=== PATIENT | female | born 1980 | race Asian ===

== ENCOUNTER 2017-11-03 00:18 | Emergency (ER) | payer OTHER ==
[2017-11-03 00:28] VITALS: BP 157/92
--- NOTE | 2017-11-03 00:57 | ED Physician Documentation ---
PD HPI SKIN - Stated complaint Stated Complaint: RASH RT KNEE - Chief complaint Chief Complaint: Wound - History obtained from History obtained from: Patient - History of Present Illness Timing - onset: Enter time (22:30), Today Timing - details: Abrupt onset Pain level now: 1 Location: RLE Quality / character: Burning, Discolored, Raised Recently seen: Not recently seen - Additional information Additional information: diagnosed with shingles RLE approximately 5 months ago, was not prescribed medication because it was several days after rash developed. The rash eventually resolved, but tonight she noticed recurrence of lesions in the same site (but clearly new lesions, as the previous had resolved). Review of Systems Constitutional: denies: Fever Skin: reports: Rash PD PAST MEDICAL HISTORY - Past Medical History Past Medical History: No Derm: Herpes zoster - Past Surgical History Past Surgical History: No - Present Medications Home Medications: Ambulatory Orders Medication Instructions Recorded Confirmed Valacyclovir HCl [Valacyclovir] 1,000 mg PO TID #20 tablet 11/03/17 - Allergies Allergies/Adverse Reactions: Allergies Allergy/AdvReac Type Severity Reaction Status Date / Time No Known Drug Allergies Allergy Verified 11/03/17 00:28 - Social History Does the pt smoke?: No Smoking Status: Never smoker Does the pt drink ETOH?: No Does the pt have substance abuse?: No - Immunizations Immunizations are current?: Yes - POLST Patient has POLST: No PD ED PE NORMAL - Vitals Vital signs reviewed: Yes - General General: Alert and oriented X 3, No acute distress, Well developed/nourished - Extremities Extremities: No edema PD ED PE EXPANDED - Extremities Extremities: Other (exanthem is on posterior surface of right knee; there are two clusters of erythematous vesicles) Results - Vitals Vitals: Vital Signs - 24 hr 11/03/17 00:23 Temperature 36.4 C L Heart Rate 75 Respiratory 18 Rate Blood Pressure 157/92 H O2 Saturation 97 Oxygen O2 Source Room air PD MEDICAL DECISION MAKING - ED course Complexity details: considered differential, d/w patient ED course: rash is very s/o shingles (zoster), just started tonight and thus will rx valacyclovir - Sepsis Event Vital Signs: Vital Signs - 24 hr 11/03/17 00:23 Temperature 36.4 C L Heart Rate 75 Respiratory 18 Rate Blood Pressure 157/92 H O2 Saturation 97 Oxygen O2 Source Room air Departure - Departure Disposition: Home, Self Care Clinical Impression: Shingles Condition: Good Instructions: ED Shingles Prescriptions: Valacyclovir HCl [Valacyclovir] 1,000 mg PO TID #20 tablet Discharge Date/Time: 11/03/17 01:20
[2017-11-03] MEDS ORDERED: valACYclovir 500 MG TABLET PO STA (01:06)
== END 2017-11-03 01:20 | disposition home or self-care (01) ==
LOC: ED 00:18
DX: B02.9 Zoster without complications (principal)
CPT/HCPCS: 99283; A9270

== ENCOUNTER 2020-10-17 14:39 | Outpatient (CLI) | payer OTHER ==
--- NOTE | 2020-10-18 13:49 | Mammography Report ---
BILATERAL DIGITAL SCREENING MAMMOGRAM 3D/2D: 10/17/2020 CLINICAL: Baseline exam. Routine screening. No prior exams were available for comparison. The tissue of both breasts is heterogeneously dense. T his may lower the sensitivity of mammography. There is an oval low density mass with an indistinct and circumscribed margin in the right breast at 11 o'clock anterior depth. There also is an oval low density focal asymmetry with an indistinct and circumscribed margin in the right breast at 10 o'clock middle depth. Additionally, there is a cluster of oval low density asymmetries with an indistinct and circumscribed margin in the right breast at 11 o'clock posterior depth. In addition, there is an oval equal density mass with an indistinct and circumscribed margin in the r ight breast at 2 o'clock anterior depth. There is an oval low density focal asymmetry with an indistinct and circumscribed margin in the left breast at 5 o'clock posterior depth. No other significant masses or calcifications are seen in either breast. IMPRESSION: INCOMPLETE: NEEDS ADDITIONAL IMAGING EVALUATION The oval low density mass in the right breast at 11 o'clock anterior depth resembles a cyst and is in determinate. An ultrasound is recommended. The oval low density focal asymmetry in the right breast at 10 o'clock middle depth resembles a cyst and is indeterminate. An ultrasound is recommended. The cluster of oval low density asymmetries in the right breast at 11 o'clock posterior depth resembl es clustered cysts and is indeterminate. An ultrasound is recommended. The oval equal density mass in the right breast at 2 o'clock anterior depth is indeterminate. An ult rasound is recommended. The oval low density focal asymmetry in the left breast at 5 o'clock posterior depth is indeterminate . An ultrasound is recommended. This exam was interpreted at Station ID: [id number]. NOTE: For mammograms, a report in lay terms will be sent to the patient. Approximately 15% of breast malignancies will not be visualized mammographically. In the management of a palpable breast mass, a negative mammogram must not discourage biopsy of a clinically suspicious lesion. Electronically Signed By: Kenn Kim M.D. ddp/:10/17/2020 16:34:08 ACR BI-RADS Category 0: Incomplete 3340F PARENCHYMAL PATTERN: (D) - The breast(s) demonstrate(s) heterogeneously dense fibroglandular brenden shahid. BI-RADS CATEGORY: (0) - 0 Ultrasound [id number] Immediate follow-up LATERALITY: (B)
== END 2020-10-17 14:40 | disposition home or self-care (01) ==
LOC: DI 14:39
DX: Z12.31 Encounter for screening mammogram for malignant neoplasm of breast (principal); R92.8 Other abnormal and inconclusive findings on diagnostic imaging of breast

== ENCOUNTER 2020-10-31 14:19 | Outpatient (CLI) | payer OTHER ==
--- NOTE | 2020-11-01 14:21 | Ultrasound Report ---
LIMITED ULTRASOUND OF RIGHT BREAST AND AXILLA: 10/31/2020 CLINICAL: Patient returns for additional imaging over suspected masses in both breasts. Comparison is made to exam dated: 10/17/2020 mammogram - [facility]. Color flow and real-time ultrasound of the right breast 2 o'clock, 10-11 o'clock, and axilla regions were performed. Bryant scale images of the real-time examination were reviewed. There is a 0.9 cm x 0.3 cm x 0.9 cm irregular mass in the right breast at 11 o'clock posterior depth 8 cm from the nipple. This irregular mass is hypoechoic with no posterior acoustic shadowing or enha ncement. This correlates with mammography findings. Color flow imaging demonstrates that there is n o vascularity present. There also is a 0.8 cm x 0.3 cm x 0.5 cm wider than tall oval mass with a circumscribed margin in the right breast at 11 o'clock anterior depth 4 cm from the nipple. This oval mass is hypoechoic with a well-defined boundary and no posterior acoustic shadowing or enhancement. This correlates with mamm ography findings. Color flow imaging demonstrates that there is no vascularity present. Additionally, there is a 1 cm x 0.3 cm x 0.7 cm wider than tall oval mass with a circumscribed margin in the right breast at 10 o'clock middle depth 5 cm from the nipple. This oval mass is hypoechoic w ith a well-defined boundary and no posterior acoustic shadowing or enhancement. This correlates with mammography findings. Color flow imaging demonstrates that there is no vascularity present. In addition, there is a 0.7 cm x 0.3 cm x 0.6 cm wider than tall oval mass with a circumscribed sharron n in the right breast at 2 o'clock anterior depth 2 cm from the nipple. This oval mass is hypoechoic with a well-defined boundary and no posterior acoustic shadowing or enhancement. This correlates wi th mammography findings. Color flow imaging demonstrates that there is no vascularity present. No significant abnormalities were seen sonographically in the right axilla. IMPRESSION: SUSPICIOUS OF MALIGNANCY The 0.9 cm x 0.3 cm x 0.9 cm irregular mass in the right breast at 11 o'clock posterior depth is at a low suspicion for malignancy. An ultrasound guided biopsy is recommended. The 0.8 cm x 0.3 cm x 0.5 cm wider than tall oval mass in the right breast at 11 o'clock anterior dep th resembles a fibroadenoma and is probably benign. Recommend follow up right breast ultrasound in 6 months to document stability. The 1 cm x 0.3 cm x 0.7 cm wider than tall oval mass in the right breast at 10 o'clock middle depth r esembles a fibroadenoma and is probably benign. Recommend follow up right breast ultrasound in 6 mon ths to document stability. The 0.7 cm x 0.3 cm x 0.6 cm wider than tall oval mass in the right breast at 2 o'clock anterior dept h resembles a fibroadenoma and is probably benign. Recommend follow up right breast ultrasound in 6 months to document stability. Findings and recommendations were discussed with the patient by Dr. Alvarez during today's examinati on. This exam was interpreted at Station ID: [id number]. Electronically Signed By: Fredo Chavis M.D. aty/:10/31/2020 18:15:54 Ultrasound BI-RADS: 4a Low suspicion for malignancy BI-RADS CATEGORY: (4a) - Low Susp None [id number] Immediate follow-up LATERALITY: ()
--- NOTE | 2020-11-01 14:21 | Ultrasound Report ---
LIMITED ULTRASOUND OF LEFT BREAST: 10/31/2020 CLINICAL: Patient returns for additional imaging over suspected masses in both breasts. Comparison is made to exam dated: 10/17/2020 mammogram - [facility]. Real-time ultrasound of the left breast 5 o'clock region was performed. Bryant scale images of the re al-time examination were reviewed. No significant abnormalities were seen sonographically in the left breast. IMPRESSION: PROBABLY BENIGN There is no abnormality seen in the left breast to correspond with the mammography finding (focal asy mmetry) in the lower outer quadrant which likely represents asymmetric distribution of fibroglandular tissue. A follow-up left mammogram with possible ultrasound in 6 months is recommended to demonstrate stabili ty. Findings and recommendations were conveyed to the patient during today's evaluation. This exam was interpreted at Station ID: [id number]. Electronically Signed By: Fredo Chavis M.D. aty/:10/31/2020 18:07:00 Ultrasound BI-RADS: 3 Probably benign BI-RADS CATEGORY: (3) - 3 Mammo and [place] [id number] 6 month follow-up LATERALITY: (L)
== END 2020-10-31 14:20 | disposition home or self-care (01) ==
LOC: DI 14:19
PROVIDERS: ATTEND Student in an Organized Health Care Education/Training Program
DX: R92.2 Inconclusive mammogram (principal); N63.11 Unspecified lump in the right breast, upper outer quadrant; D24.1 Benign neoplasm of right breast

== ENCOUNTER 2020-11-26 08:46 | Outpatient (CLI) | payer OTHER ==
[~2020-11-26 08:46] MED LIST: BUFFERED LIDOCAINE 10 ML SYRINGE ONE; LIDOCAINE MPF 1%-EPI 1:200000 30 ML VIAL ONE
[2020-11-26] MEDS ORDERED: BUFFERED LIDOCAINE 10 ML SYRINGE IU ONE (13:38)
[2020-11-26] MEDS ORDERED: LIDOCAINE MPF 1%-EPI 1:200000 30 ML VIAL SUBQ ONE (13:41)
--- NOTE | 2020-11-27 14:11 | Ultrasound Report ---
ULTRASOUND GUIDED BIOPSY RIGHT BREAST USING VACUUM DEVICE: 11/26/2020 CLINICAL: Right breast mass. PATIENT CONSENT: Risks (minor bleeding, infection, vasovagal reaction and repeat procedure), benefits and alternatives were explained to the patient and written informed consent was obtained. Correlation is made to exams dated: 10/31/2020 ultrasound, 10/31/2020 ultrasound, and 10/17/2020 mammogr [facility]. An ultrasound guided biopsy using real-time ultrasound was performed for the circumscribed irregular shaped cystic mass located in the right breast at 11 o'clock posterior depth. This was described on the previous mammography and ultrasound reports. The skin was prepped in the usual manner. Topical and local anesthetic was administered to the access site. A skin nikolay was made in the breast. The a bnormality was approached from the lateral aspect. A biopsy needle was placed adjacent to the abnorm ality under ultrasound guidance. Once the needle was documented to be in the correct location, a spe cimen was obtained using the Mammotome biopsy system. A sterile dressing was applied to the access s ite. The specimen was sent to the laboratory for pathological analysis. IMPRESSION: ULTRASOUND GUIDED BIOPSY BENIGN Ultrasound guided biopsy of the cystic mass in the right breast posterior depth was successful. Path ology indicates benign mild ductal epithelial hyperplasia without atypia, and fibrocystic changes (FC ). Pathology results are concordant with imaging findings. A follow-up bilateral mammograms and ultrasound in 6 months is recommended to demonstrate stability o f bilateral findings. This exam was interpreted at Station ID: [id number]. Macy Schmidt M.D. [facility],krg/:11/27/2020 11:48:44 BI-RADS CATEGORY: () - Mammo and [place] [id number] 6 month follow-up LATERALITY: (B)
== END 2020-11-26 08:47 | disposition home or self-care (01) ==
LOC: DI 08:46
PROVIDERS: ATTEND Student in an Organized Health Care Education/Training Program
DX: N60.11 Diffuse cystic mastopathy of right breast (principal); N62 Hypertrophy of breast
CPT/HCPCS: 19083

== ENCOUNTER 2021-05-29 08:51 | Outpatient (CLI) | payer OTHER ==
--- NOTE | 2021-06-03 09:35 | Ultrasound Report ---
LIMITED ULTRASOUND OF RIGHT BREAST: 05/29/2021 CLINICAL: Short term follow up for bilateral breasts. Comparison is made to exams dated: 05/29/2021 mammogram, 11/26/2020 ultrasound biopsy, 10/31/2020 ultra sound, 10/31/2020 ultrasound, and 10/17/2020 mammogram - [facility]. Color flow and real-time ultrasound of the right breast 2 o'clock and 10-11 o'clock regions were perf ormed. Bryant scale images of the real-time examination were reviewed. The previously described masses are all unchanged in size and remain consistent in appearance with fi broadenomas. No supicious morphology or features. 1. There is a 0.9 cm x 0.3 cm x 0.9 cm irregular mass in the right breast at 11 o'clock posterior dep th 8 cm from the nipple. This irregular mass is hypoechoic with no posterior acoustic shadowing or enhancement. This correlat es with mammography findings. Color flow imaging demonstrates that there is no vascularity present. 2. There also is a 0.8 cm x 0.3 cm x 0.5 cm wider than tall oval mass with a circumscribed margin in the right breast at 11 o'clock anterior depth 4 cm from the nipple. This oval mass is hypoechoic wit h a well-defined boundary and no posterior acoustic shadowing or enhancement. This correlates with m ammography findings. Color flow imaging demonstrates that there is no vascularity present. 3. There is a 1 cm x 0.3 cm x 0.7 cm wider than tall oval mass with a circumscribed margin in the rig ht breast at 10 o'clock middle depth 5 cm from the nipple. This oval mass is hypoechoic with a well- defined boundary and no posterior acoustic shadowing or enhancement. This correlates with mammograph y findings. Color flow imaging demonstrates that there is no vascularity present. 4. There is a 0.7 cm x 0.3 cm x 0.6 cm wider than tall oval mass with a circumscribed margin in the r ight breast at 2 o'clock anterior depth 2 cm from the nipple. This oval mass is hypoechoic with a we ll-defined boundary and no posterior acoustic shadowing or enhancement. This correlates with mammogr aphy findings. Color flow imaging demonstrates that there is no vascularity present. 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 No additional de dicated imaging follow-up is recommended. Clinical observation and management is recommended. A 1 yea r screening mammogram is recommended. This exam was interpreted at Station ID: [id number]. Electronically Signed By: Marty Thrasher M.D. jr/:05/29/2021 11:09:19 Ultrasound BI-RADS: 2 Benign BI-RADS CATEGORY: (2) - 2 RECOMMENDATION: (ANNUAL) - Recommend routine annual screening mammography. [id number] 1 year screening LATERALITY: (B)
--- NOTE | 2021-06-03 09:35 | Mammography Report ---
BILATERAL DIGITAL DIAGNOSTIC MAMMOGRAM 3D/2D: 05/29/2021 CLINICAL: Patient returns for a 6 month follow up of bilateral breasts. Comparison is made to exams dated: 11/26/2020 ultrasound biopsy, 10/31/2020 ultrasound, 10/31/2020 ultr asound, and 10/17/2020 mammogram - [facility]. The tissue of both breasts is heterog eneously dense. This may lower the sensitivity of mammography. No significant masses, calcifications, or other findings are seen in either breast. IMPRESSION: INCOMPLETE: NEEDS ADDITIONAL IMAGING EVALUATION No suspicious mammographic abnormality. An ultrasound will be performed to follow-up the previous shirin cribed cystic masses. This exam was interpreted at Station ID: [id number]. NOTE: For mammograms, a report in lay terms will be sent to the patient. Approximately 15% of breast malignancies will not be visualized mammographically. In the management of a palpable breast mass, a negative mammogram must not discourage biopsy of a clinically suspicious lesion. Electronically Signed By: Marty Thrasher M.D. jr/:05/31/2021 08:48:25 ACR BI-RADS Category 0: Incomplete 3340F PARENCHYMAL PATTERN: (D) - The breast(s) demonstrate(s) heterogeneously dense fibroglandular parenchy ma. BI-RADS CATEGORY: (0) - 0 Unspecified - other recall n/a LATERALITY: (B)
--- NOTE | 2021-06-03 09:36 | Ultrasound Report ---
LIMITED ULTRASOUND OF LEFT BREAST: 05/29/2021 CLINICAL: Short term follow up for bilateral breasts. Comparison is made to exams dated: 05/29/2021 mammogram, 11/26/2020 ultrasound biopsy, 10/31/2020 ultra sound, 10/31/2020 ultrasound, and 10/17/2020 mammogram - [facility]. Ultrasound of the left breast 5 o'clock region was performed. Bryant scale images of the real-time ex amination were reviewed. There is no visible abnormality in the left breast at 5 o'clock posterior depth by ultrasound. IMPRESSION: NEGATIVE There is no abnormality seen in the left breast to correspond with the mammography finding in the low er outer quadrant which likely represents normal fibroglandular tissue. This exam was interpreted at Station ID: [id number]. Electronically Signed By: Marty Thrasher M.D. jr/:05/29/2021 11:12:52 Ultrasound BI-RADS: 1 Negative BI-RADS CATEGORY: (1) - 1 Unspecified - other recall n/a LATERALITY: (B)
== END 2021-05-29 08:52 | disposition home or self-care (01) ==
LOC: DI 08:51
PROVIDERS: ATTEND Family Medicine
DX: R92.8 Other abnormal and inconclusive findings on diagnostic imaging of breast (principal)

== ENCOUNTER 2022-02-26 18:57 | Outpatient (CLI) | payer OTHER ==
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
== END 2022-02-26 23:59 | disposition home or self-care (01) ==
LOC: DI.N 18:57
PROVIDERS: ATTEND Registered Nurse
DX: M47.816 Spondylosis without myelopathy or radiculopathy, lumbar region (principal); M47.817 Spondylosis without myelopathy or radiculopathy, lumbosacral region; M48.07 Spinal stenosis, lumbosacral region; M47.812 Spondylosis without myelopathy or radiculopathy, cervical region

== ENCOUNTER 2022-08-06 14:38 | Outpatient (CLI) | payer OTHER ==
--- NOTE | 2022-08-06 15:52 | Ultrasound Report ---
PROCEDURE: Head or Neck Soft Tissue INDICATIONS: ENLARGED LYMPH NODES TECHNIQUE: Real-time scanning was performed of the neck, with image documentation. COMPARISON: None FINDINGS: Ultrasound of the region of concern demonstrates a normal-appearing cervical chain lymph with a renif orm shape and distinct fatty hilum. This measures 1.2 x 0.5 x 1.0 cm. IMPRESSION: No sonographic abnormality. Reviewed by: Timo García on 08/06/2022 3:50 PM PDT Approved by: Timo García on 08/06/2022 3:50 PM PDT Station ID: [id number]
== END 2022-08-06 14:39 | disposition home or self-care (01) ==
LOC: DI 14:38
PROVIDERS: ATTEND Student in an Organized Health Care Education/Training Program
DX: R59.0 Localized enlarged lymph nodes (principal)

== ENCOUNTER 2022-09-05 11:12 | Outpatient (CLI) | payer OTHER ==
--- NOTE | 2022-09-05 12:17 | XRAY Report ---
PROCEDURE: Chest 2 View X-Ray INDICATIONS: COUGH TECHNIQUE: 2 views of the chest were acquired. COMPARISON: None. FINDINGS: Surgical changes and devices: None. Lungs and pleura: No pleural effusions or pneumothorax. Lungs are clear. Mediastinum: Mediastinal contours appear normal. Heart size is normal. Bones and chest wall: No suspicious bony lesions. Overlying soft tissues appear unremarkable. IMPRESSION: No acute cardiopulmonary process. Reviewed by: Gilbert Concepcion MD on 09/05/2022 12:15 PM PDT Approved by: Gilbert Concepcion MD on 09/05/2022 12:15 PM PDT Station ID: [id number]
== END 2022-09-05 11:13 | disposition home or self-care (01) ==
LOC: DI 11:12
PROVIDERS: ATTEND Physician Assistant
DX: R05.9 Cough, unspecified (principal)

== ENCOUNTER 2022-09-23 08:16 | Emergency (ER) | payer OTHER ==
[2022-09-23 09:07] LABS: BASOPHILS % (AUTO) 0.2 %; EOSINOPHILS # (AUTO) 0.2 10^3/uL (0.0-0.7); EOSINOPHILS % (AUTO) 1.8 %; HCT - HEMATOCRIT 39.5 % (37.0-47.0); HGB - HEMOGLOBIN 13.6 g/dL (12.0-16.0); LYMPHOCYTES % (AUTO) 23.4 %; MEAN CORPUSCULAR HEMOGLOBIN 28.9 pg (27.0-31.0); MEAN CORPUSCULAR HGB CONC 34.4 g/dL (32.0-36.0); MEAN PLATELET VOLUME 9.2 fL (7.9-10.8); MONOCYTES # (AUTO) 0.4 10^3/uL (0.0-1.0); MONOCYTES % (AUTO) 4.3 %; NEUTROPHILS # (AUTO) 5.8 10^3/uL (1.5-6.6); NEUTROPHILS % (AUTO) 70.1 %; PLT - PLATELET COUNT 321 10^3/uL (130-450); RED CELL DISTRIBUTION WIDTH 13.2 % (12.0-15.0); WHITE BLOOD COUNT 8.3 x10^3/uL (4.8-10.8)
--- NOTE | 2022-09-23 09:07 | XRAY Report ---
PROCEDURE: Chest 1 View X-Ray INDICATIONS: Chest Pain TECHNIQUE: One view of the chest was acquired. COMPARISON: 09/05/2022 FINDINGS: Surgical changes and devices: None. Lungs and pleura: No pleural effusions or pneumothorax. Lungs are clear. Mediastinum: Mediastinal contours appear normal. Heart size is normal. Bones and chest wall: No suspicious bony lesions. Overlying soft tissues appear unremarkable. IMPRESSION: No acute radiographic abnormality. Reviewed by: Gigi Sharp MD on 09/23/2022 9:06 AM PDT Approved by: Gigi Sharp MD on 09/23/2022 9:06 AM PDT Station ID: [id number]
[2022-09-23 09:23] LABS: ALBUMIN 4.3 g/dL (3.2-5.5); BILIRUBIN,TOTAL 0.9 mg/dL (0.2-1.0); CALCIUM 8.9 mg/dL (8.5-10.3); CREATININE 0.5 mg/dL (0.4-1.0); POTASSIUM 3.4 mmol/L (3.5-5.0); TOTAL PROTEIN 8.6 g/dL (6.7-8.2)
[2022-09-23] MEDS: POTASSIUM CHLORIDE 20 MEQ TABLET PO STA (10:43)
--- NOTE | 2022-09-23 11:37 | ED Physician Documentation ---
PD HPI CHEST PAIN - Stated complaint Stated Complaint: POUNDING CHEST/SHOULDER PX - Chief complaint Chief Complaint: Cardiac - History obtained from History obtained from: Patient - Additional information Additional information: Patient is a 42-year-old with a history of diabetes presenting for evaluation of feeling like her chest was pounding around midnight and is well as some mild left-sided chest discomfort. She noted that her blood pressure was elevated at home. She recently has had URI symptoms and was told she had walking pneumonia and completed a course of antibiotics. She says that the cough has gotten better. She denies nausea, vomiting, shortness of breath, fever. She no longer has any chest pain. She denies a history of known coronary artery disease. Does not take medications for blood pressure or cholesterol. Denies early family history of CAD. No history of PE or DVT. No recent travel or immobilization.She denies concerns for . Review of Systems Constitutional: denies: Fever Cardiac: reports: Chest pain / pressure Respiratory: denies: Dyspnea GI: denies: Abdominal Pain, Vomiting Musculoskeletal: denies: Extremity pain, Extremity swelling PD PAST MEDICAL HISTORY - Past Medical History Derm: Herpes zoster - Past Surgical History Past Surgical History: No - Present Medications Home Medications: Ambulatory Orders Medication Instructions Recorded Confirmed metFORMIN [Glucophage] 500 mg PO BIDWM 09/23/22 09/23/22 - Allergies Allergies/Adverse Reactions: Allergies Allergy/AdvReac Type Severity Reaction Status Date / Time codeine AdvReac Itching Verified 09/23/22 08:33 - Social History Does the pt smoke?: No Smoking Status: Never smoker Does the pt drink ETOH?: No Does the pt have substance abuse?: No - Immunizations Immunizations are current?: Yes - POLST Patient has POLST: No PD ED PE NORMAL - General General: Alert and oriented X 3, No acute distress, Well developed/nourished - HEENT HEENT: Atraumatic - Neck Neck: Supple, no meningeal sign - Cardiac Cardiac: RRR, No murmur, Strong equal pulses, Other (No chest wall tenderness) - Respiratory Respiratory: No respiratory distress, Clear bilaterally - Abdomen Abdomen: Soft, Non tender, Non distended - Derm Derm: Warm and dry - Extremities Extremities: No edema, No calf tenderness / cord - Neuro Neuro: Normal speech Results - Vitals Vitals: Vital Signs - 24 hr 09/23/22 09/23/22 09/23/22 08:34 11:00 11:49 Temperature 37.3 C Heart Rate 99 83 91 Respiratory 20 16 16 Rate Blood Pressure 172/109 H 150/99 H 145/97 H O2 Saturation 98 99 98 Oxygen O2 Source Room air - EKG (time done) 0840 EKG releavant findings:: EKG personally interpreted by author of this note. Relevant findings are: Rate 83, normal sinus rhythm, no STEMI, No ST depressions, no prior for comparison Rate: Rate (enter#) (83) Rhythm: NSR Intervals: No: Prolonged QT Ischemia: T wave inversion (Minimal in inferior and Anterior lateral leads). No: ST elevation c/w ischemia, ST depression Compare to prior EKG: Old EKG unavailable - Labs Labs: Laboratory Tests 09/23/22 09/23/22 09/23/22 08:59 08:59 08:59 WBC 8.3 RBC 4.70 Hgb 13.6 Hct 39.5 MCV 84.0 MCH 28.9 MCHC 34.4 RDW 13.2 Plt Count 321 MPV 9.2 Neut # (Auto) 5.8 Lymph # (Auto) 2.0 Price # (Auto) 0.4 Eos # (Auto) 0.2 Baso # (Auto) 0.0 Absolute Nucleated RBC 0.00 Nucleated RBC % 0.0 Sodium 137 Potassium 3.4 L Chloride 104 Carbon Dioxide 21 Anion Gap 12.0 BUN 10 Creatinine 0.5 Estimated GFR (MDRD) 135 Glucose 182 H Calcium 8.9 Total Bilirubin 0.9 AST 33 ALT 27 Alkaline Phosphatase 63 Troponin I High Sens 2.9 Total Protein 8.6 H Albumin 4.3 Globulin 4.3 H Albumin/Globulin Ratio 1.0 Lipase 34 09/23/22 10:52 WBC RBC Hgb Hct MCV MCH MCHC RDW Plt Count MPV Neut # (Auto) Lymph # (Auto) Price # (Auto) Eos # (Auto) Baso # (Auto) Absolute Nucleated RBC Nucleated RBC % Sodium Potassium Chloride Carbon Dioxide Anion Gap BUN Creatinine Estimated GFR (MDRD) Glucose Calcium Total Bilirubin AST ALT Alkaline Phosphatase Troponin I High Sens 2.9 Total Protein Albumin Globulin Albumin/Globulin Ratio Lipase PD Medical Decision Making - ED course Complexity details: reviewed results, re-evaluated patient, d/w patient ED course: Patient is a 42-year-old presenting for evaluation of an episode of chest pain this morning that has since resolved. She has a history of diabetes. Her EKG is reviewed With no ST depressions or elevation.She does have some nonspecific changes. CBC, chemistry, troponin were reviewed without significant findings. Second troponin is also negative. Symptoms started greater than 8 hours ago. She is PERC negative. As her symptoms have resolved I doubt a dissection.She is low risk for ACS per the heart score. She is symptom-free and has 2 negative troponins and feel she is appropriate for close outpatient follow-up. She is advised on concerning symptoms to return for. Departure - Departure Disposition: Home, Self Care Clinical Impression: Chest pain Condition: Stable Instructions: ED Chest Pain Atypical Unkn Cause Follow-Up: VENKATESH HERRERA MD [Primary Care Provider] - Comments: The exact cause for your chest pain at this time remains unclear. Your cardiac markers have been negative which is reassuring that at this time you are not having a heart attack but you may need further testing to check your heart such as a stress test or an ultrasound of your heart. I would recommend close follow-up with your primary care provider. If it anytime your symptoms recur or worsen in any way please return to the emergency department. Discharge Date/Time: 09/23/22 11:50
[2022-09-23 11:51] VITALS: BP 145/97
== END 2022-09-23 11:50 | disposition home or self-care (01) ==
LOC: ED 08:16
DX: R07.9 Chest pain, unspecified (principal)
CPT/HCPCS: 36415; 71045; 80053; 83690; 84484; 85025; 93005; 99283; 99284; A9270